=== PATIENT | male | born 1935 | race Caucasian/White ===

== ENCOUNTER 2017-05-09 14:53 | Inpatient (IN) | payer OTHER ==
[~2017-05-09] VITALS: Ht 177.8 cm; Wt 95.3 kg
[2017-05-09 16:30] LABS: EOSINOPHIL (%) 0.3 % (0-5); HEMATOCRIT 28.2 % (38.0-50.0); IMMATURE GRANULOCYTE COUNT 0.4 K/uL; INSTRUMENT ABS NEUTROPHIL CT 6.8 K/uL; LYMPHOCYTE COUNT 0.8 K/uL (1.0-2.8); MCH 31.8 PG (29.0-34.0); MCHC 33.7 G/DL (30.0-36.0); MCV 94.3 FL (86-99); MEAN PLAT.VOLUME 9.3 uM^3 (9.0-12.4); MONOCYTE (%) 8.1 % (3-12); MONOCYTE COUNT 0.7 K/uL (0-0.8); NEUTROPHIL (%) 78.7 % (45-76); NEUTROPHIL COUNT 6.8 K/uL (1.8-6.4); PLATELET COUNT 278 K/uL (156-360); RBC DIS.WIDTH-CV 12.6 % (11.8-14.6); RED BLOOD COUNT 2.99 M/uL (4.00-5.50); WHITE BLOOD COUNT 8.7 K/uL (4.1-10.2)
[2017-05-09 16:37] LABS: INTER. NORMALIZED RATIO 1.1; PROTHROMBIN TIME 12.3 SEC (10.2-12.9)
[2017-05-09 16:38] LABS: CHLORIDE 104 mEq/L (99-109); POTASSIUM 5.1 mEq/L (3.7-5.4); SODIUM 136 mEq/L (136-147)
[2017-05-09 16:40] LABS: GLUCOSE 180 mg/dL (70-99); PTT 31.3 SEC (25-37)
[2017-05-09 16:41] LABS: ANION GAP 8 MEQ/L (2-14)
[2017-05-09 16:44] LABS: GFR ESTIMATE (CALCULATED) 39 mL/min/; UREA NITROGEN (BUN) 31 mg/dL (9-23)
[2017-05-09 16:50] LABS: TROP-I INTERPRETATION NEGATIVE
[2017-05-09] MEDS ORDERED: LOW DOSE ASPIRI81 M1 PO (21:46)
[2017-05-09] MEDS ORDERED: ATORVASTATIN CA40 MG PO (21:47)
[2017-05-09] MEDS ORDERED: LASIX40 MG PO (21:48)
[2017-05-09] MEDS ORDERED: SENNA S TABLET1 EACH PO (21:48)
[2017-05-09] MEDS ORDERED: PULMICORT FLEX90 MCG IH (21:48)
[2017-05-09] MEDS ORDERED: COZAAR100 MG PO (21:49)
[2017-05-09] MEDS ORDERED: APRESOLINE25 MG PO (21:49)
[2017-05-09] MEDS ORDERED: GLUCOPHAGE1000 MG PO (21:50)
[2017-05-09] MEDS ORDERED: NIFEDIPINE ER60 MG PO (21:51)
[2017-05-09] MEDS ORDERED: LOPRESSOR50 MG PO (21:51)
[2017-05-09] MEDS ORDERED: OMEPRAZOLE40 M1 PO (21:51)
[2017-05-09] MEDS ORDERED: FLOMAX0.4 MG PO (21:52)
[2017-05-09] MEDS ORDERED: COUMADIN2.5 MG PO (21:52)
[2017-05-09] MEDS ORDERED: SPIRONOLACTONE25 MG PO (21:52)
[2017-05-09] MEDS ORDERED: ALPRAZOLAM0.25 M2 PO (21:53)
[2017-05-09 23:32] LABS: TROP-I INTERPRETATION NEGATIVE; TROPONIN-I 0.09 ng/mL (0.0-0.30)
[2017-05-10] VITALS (8 sets, daily range): BP systolic 166–198; BP diastolic 73–88
[2017-05-10 06:01] LABS: HEMATOCRIT 27.9 % (38.0-50.0); MCH 32.3 PG (29.0-34.0); MCHC 34.1 G/DL (30.0-36.0); MCV 94.9 FL (86-99); MEAN PLAT.VOLUME 9.9 uM^3 (9.0-12.4); PLATELET COUNT 239 K/uL (156-360); RBC DIS.WIDTH-CV 12.8 % (11.8-14.6); RBC DIS.WIDTH-SD 43.4 % (39-53); RED BLOOD COUNT 2.94 M/uL (4.00-5.50); WHITE BLOOD COUNT 7.9 K/uL (4.1-10.2)
[2017-05-10 06:28] LABS: ANION GAP 11 MEQ/L (2-14); CHLORIDE 101 MEQ/L (99-109); GFR ESTIMATE (CALCULATED) 48 mL/min/; GLUCOSE 238 mg/dL (70-99); POTASSIUM 4.6 MEQ/L (3.7-5.4); SAMPLE HEMOLYSIS CHECK 0; SAMPLE ICTERIC CHECK 0; SAMPLE LIPEMIA CHECK 0; SODIUM 134 MEQ/L (136-147); UREA NITROGEN (BUN) 26 mg/dL (9-23)
[2017-05-10 06:34] LABS: Estimated Average Glucose 131 mg/dL (70-123); HEMOGLOBIN A1c (GLYCOHEMOGLOB) 6.2 % HGB (Below 5.7)
[2017-05-10 06:46] LABS: INTER. NORMALIZED RATIO 1.1; PROTHROMBIN TIME 12.6 SEC (10.2-12.9)
[2017-05-10 17:24] LABS: POINT-OF-CARE METER ID UU14174225
[2017-05-10 21:27] LABS: POINT-OF-CARE METER ID UU14174225
[2017-05-11] VITALS: BP 126/59
[2017-05-11 00:58] LABS: TROP-I INTERPRETATION NEGATIVE; TROPONIN-I 0.06 ng/mL (0.0-0.30)
[2017-05-11 03:29] VITALS: BP 133/60
[2017-05-11 08:29] LABS: INTER. NORMALIZED RATIO 1.1; PROTHROMBIN TIME 11.8 SEC (10.2-12.9)
[2017-05-11 08:30] VITALS: BP 146/90
[2017-05-11 08:46] LABS: ANION GAP 9 MEQ/L (2-14); CHLORIDE 98 MEQ/L (99-109); GFR ESTIMATE (CALCULATED) 36 mL/min/; GLUCOSE 236 mg/dL (70-99); POTASSIUM 4.8 MEQ/L (3.7-5.4); SAMPLE HEMOLYSIS CHECK 0; SAMPLE ICTERIC CHECK 0; SAMPLE LIPEMIA CHECK 0; SODIUM 131 MEQ/L (136-147); UREA NITROGEN (BUN) 40 mg/dL (9-23)
[2017-05-11 12:42] LABS: POINT-OF-CARE METER ID UU13113717
[2017-05-11 13:23] VITALS: BP 152/89
[2017-05-11 17:18] LABS: POINT-OF-CARE METER ID UU14174225
[2017-05-11 19:54] VITALS: BP 166/72
[2017-05-11 21:30] LABS: POINT-OF-CARE METER ID UU14174225
[2017-05-12] VITALS (11 sets, daily range): BP systolic 120–179; BP diastolic 59–86
[2017-05-12 05:33] LABS: HEMATOCRIT 25.6 % (38.0-50.0); MCH 32.8 PG (29.0-34.0); MCHC 34.4 G/DL (30.0-36.0); MCV 95.5 FL (86-99); MEAN PLAT.VOLUME 9.7 uM^3 (9.0-12.4); PLATELET COUNT 249 K/uL (156-360); RBC DIS.WIDTH-SD 43.7 % (39-53); RED BLOOD COUNT 2.68 M/uL (4.00-5.50); WHITE BLOOD COUNT 8.7 K/uL (4.1-10.2)
[2017-05-12 05:58] LABS: ANION GAP 5 MEQ/L (2-14); CHLORIDE 99 MEQ/L (99-109); GFR ESTIMATE (CALCULATED) 34 mL/min/; GLUCOSE 174 mg/dL (70-99); POTASSIUM 5.5 MEQ/L (3.7-5.4); SAMPLE HEMOLYSIS CHECK 0; SAMPLE ICTERIC CHECK 0; SAMPLE LIPEMIA CHECK 0; SODIUM 130 MEQ/L (136-147); UREA NITROGEN (BUN) 51 mg/dL (9-23)
[2017-05-12 08:03] LABS: POINT-OF-CARE METER ID UU13113717
[2017-05-12 11:40] LABS: POINT-OF-CARE METER ID UU14174225
[2017-05-12 14:56] LABS: TROP-I INTERPRETATION NEGATIVE; TROPONIN-I 0.04 ng/mL (0.0-0.30)
[2017-05-12 18:24] LABS: TROP-I INTERPRETATION NEGATIVE; TROPONIN-I 0.03 ng/mL (0.0-0.30)
[2017-05-12 21:29] LABS: POINT-OF-CARE METER ID UU14188625
[2017-05-13 03:35] VITALS: BP 117/56
[2017-05-13 06:40] LABS: ANION GAP 6 MEQ/L (2-14); CHLORIDE 102 MEQ/L (99-109); GFR ESTIMATE (CALCULATED) 34 mL/min/; SAMPLE HEMOLYSIS CHECK 0; SAMPLE ICTERIC CHECK 0; SAMPLE LIPEMIA CHECK 0; SODIUM 132 MEQ/L (136-147); UREA NITROGEN (BUN) 50 mg/dL (9-23)
[2017-05-13 06:42] LABS: GLUCOSE 113 mg/dL (70-99)
[2017-05-13 07:20] VITALS: BP 165/67
[2017-05-13 11:50] VITALS: BP 129/53
[2017-05-13 12:35] LABS: POINT-OF-CARE METER ID UU14174225
[2017-05-13 15:00] VITALS: BP 119/53
[2017-05-13 16:54] LABS: POINT-OF-CARE METER ID UU13113717
[2017-05-13 20:16] VITALS: BP 159/59
[2017-05-13 22:24] LABS: UR CREATININE CONCENTRATION 21.3 MG/DL
[2017-05-13 22:27] LABS: RED BLOOD CELLS RARE /HPF (0-5); WHITE BLOOD CELLS RARE /HPF (0-5)
[2017-05-13 22:28] LABS: BACTERIA RARE /HPF; CASTS NONE SEEN /LPF; CRYSTALS NONE SEEN; EPITHELIAL CELLS RARE /HPF; MUCUS NONE SEEN /LPF
[2017-05-14 00:28] VITALS: BP 141/63
[2017-05-14 04:16] VITALS: BP 166/70
[2017-05-14 08:06] VITALS: BP 168/67
[2017-05-14 08:15] LABS: EOSINOPHIL (%) 0.2 % (0-5); HEMATOCRIT 28.4 % (38.0-50.0); IMMATURE GRANULOCYTE (%) 3.3 % (0.0-0.7); IMMATURE GRANULOCYTE COUNT 0.4 K/uL; INSTRUMENT ABS NEUTROPHIL CT 9.1 K/uL; LYMPHOCYTE COUNT 0.6 K/uL (1.0-2.8); MCHC 33.1 G/DL (30.0-36.0); MCV 96.6 FL (86-99); MEAN PLAT.VOLUME 9.7 uM^3 (9.0-12.4); MONOCYTE (%) 5.8 % (3-12); MONOCYTE COUNT 0.6 K/uL (0-0.8); NEUTROPHIL (%) 84.5 % (45-76); NEUTROPHIL COUNT 9.1 K/uL (1.8-6.4); PLATELET COUNT 277 K/uL (156-360); RBC DIS.WIDTH-CV 13.2 % (11.8-14.6); RBC DIS.WIDTH-SD 45.6 % (39-53); RED BLOOD COUNT 2.94 M/uL (4.00-5.50); WHITE BLOOD COUNT 10.8 K/uL (4.1-10.2)
[2017-05-14 09:05] LABS: ANION GAP 8 MEQ/L (2-14); CHLORIDE 102 MEQ/L (99-109); GFR ESTIMATE (CALCULATED) 39 mL/min/; POTASSIUM 5.1 MEQ/L (3.7-5.4); SAMPLE HEMOLYSIS CHECK 0; SAMPLE ICTERIC CHECK 0; SAMPLE LIPEMIA CHECK 0; SODIUM 133 MEQ/L (136-147); UREA NITROGEN (BUN) 50 mg/dL (9-23)
[2017-05-14 09:08] LABS: GLUCOSE 176 mg/dL (70-99)
[2017-05-14 12:07] VITALS: BP 148/65
[2017-05-14] MEDS ORDERED: CEFTIN500 MG PO (15:45)
[2017-05-14] MEDS ORDERED: APRESOLINE100 MG PO (15:46)
[2017-05-14] MEDS ORDERED: DUONEB 2.5-0.5 M3 ML AEROSOL (15:46)
[2017-05-14] MEDS ORDERED: AZITHROMYCIN500 M1 PO (15:46)
[2017-05-14] MEDS ORDERED: LOPRESSOR25 MG PO (15:46)
[2017-05-14] MEDS ORDERED: TYLENOL REGULA325 MG PO (15:47)
[2017-05-14] MEDS ORDERED: ADVAIR HFA120 INHAL1 IH (15:48)
[2017-05-14] MEDS ORDERED: BRIMONIDINE TAR10 ML BOTH EYES (15:48)
[2017-05-14] MEDS ORDERED: FUROSEMIDE40 MG PO (15:48)
[2017-05-14] MEDS ORDERED: GLIPIZIDE5 MG PO (15:49)
[2017-05-14] MEDS ORDERED: PREDNISONE20 MG PO (15:49)
[2017-05-14] MEDS ORDERED: LATANOPROST2.5 ML BOTH EYES (15:49)
[2017-05-14] MEDS ORDERED: NOVOLOG PE100 UNITS/ SC (15:49)
[2017-05-14] MEDS ORDERED: ALPRAZOLAM0.25 M2 PO (15:53)
[2017-05-14 15:56] VITALS: BP 172/64
[2017-05-14 17:13] LABS: POINT-OF-CARE METER ID UU13113717
== END 2017-05-14 21:16 | DRG 189 ==
LOC: EME 14:53 → EDOF 20:46 → 5SOUTH 20:46 → ENRESERV 20:56 → 5SOUTH 23:20
PROVIDERS: Emergency Medicine; Hospitalist; Internal Medicine; Internal Medicine Nephrology
DX: J96.01 Acute respiratory failure with hypoxia (principal); I13.0 Hypertensive heart and chronic kidney disease with heart failure and stage 1 through stage 4 chronic kidney disease, or unspecified chronic kidney disease; J44.1 Chronic obstructive pulmonary disease with (acute) exacerbation; I25.10 Atherosclerotic heart disease of native coronary artery without angina pectoris; Z95.1 Presence of aortocoronary bypass graft; N18.3 Chronic kidney disease, stage 3 (moderate); E11.22 Type 2 diabetes mellitus with diabetic chronic kidney disease; I44.0 Atrioventricular block, first degree; I50.9 Heart failure, unspecified; Z87.891 Personal history of nicotine dependence; L60.0 Ingrowing nail; D64.9 Anemia, unspecified; Z95.3 Presence of xenogenic heart valve; Z91.19 Patient's noncompliance with other medical treatment and regimen; E87.1 Hypo-osmolality and hyponatremia; N17.9 Acute kidney failure, unspecified; N28.1 Cyst of kidney, acquired
CPT/HCPCS: 71010; 71020; 71250; 76770; 80048; 82570; 82948; 83036; 83735; 83880; 84100; 84156; 84300; 84484; 85025; 85027; 85610; 85730; 93005; 93926; 94640; 94640 76; 94799; 97530 GO; 99202; 99281; 99285; J0360; J0456; J0696; J1644; J1815; J1940; J2270; J2920; J7050

== ENCOUNTER 2017-12-28 13:03 | Inpatient (IN) | payer OTHER ==
[~2017-12-28] VITALS: Ht 177.8 cm; Wt 101.6 kg
[~2017-12-28 13:03] MED LIST: ADVAIR HFA120 INHAL1 IH; ALPRAZOLAM0.25 M2 PO; APRESOLINE100 MG PO; APRESOLINE25 MG PO; ATORVASTATIN CA40 MG PO; AZITHROMYCIN500 M1 PO; BRIMONIDINE TAR10 ML BOTH EYES; CEFTIN500 MG PO; COUMADIN2.5 MG PO; COZAAR100 MG PO; DUONEB 2.5-0.5 M3 ML AEROSOL; FLOMAX0.4 MG PO; FUROSEMIDE40 MG PO; GLIPIZIDE5 MG PO; GLUCOPHAGE1000 MG PO; LASIX40 MG PO; LATANOPROST2.5 ML BOTH EYES; LOPRESSOR25 MG PO; LOPRESSOR50 MG PO; LOW DOSE ASPIRI81 M1 PO; NIFEDIPINE ER60 MG PO; NOVOLOG PE100 UNITS/ SC; OMEPRAZOLE40 M1 PO; PREDNISONE20 MG PO; PULMICORT FLEX90 MCG IH; SENNA S TABLET1 EACH PO; SPIRONOLACTONE25 MG PO; TYLENOL REGULA325 MG PO
[2017-12-28 13:42] LABS: BASOPHIL (%) 0.5 % (0-1); EOSINOPHIL COUNT 0.1 K/uL (0-0.3); HEMATOCRIT 38.8 % (38.0-50.0); HEMOGLOBIN 13.3 G/DL (12.5-16.6); IMMATURE GRANULOCYTE (%) 1.5 % (0.0-0.7); LYMPHOCYTE (%) 17.1 % (15-42); LYMPHOCYTE COUNT 1.1 K/uL (1.0-2.8); MCH 30.4 PG (29.0-34.0); MCHC 34.3 G/DL (30.0-36.0); MCV 88.6 FL (86-99); MONOCYTE (%) 6.7 % (3-12); MONOCYTE COUNT 0.4 K/uL (0-0.8); NEUTROPHIL (%) 73.2 % (45-76); NEUTROPHIL COUNT 4.5 K/uL (1.8-6.4); PLATELET COUNT 153 K/uL (156-360); RBC DIS.WIDTH-CV 13.2 % (11.8-14.6); RED BLOOD COUNT 4.38 M/uL (4.00-5.50); WHITE BLOOD COUNT 6.1 K/uL (4.1-10.2)
[2017-12-28 13:50] LABS: PTT 30.2 SEC (25-37)
[2017-12-28 13:51] LABS: CHLORIDE 105 mEq/L (99-109); MAGNESIUM 2.3 mg/dL (1.3-2.7); POTASSIUM 4.3 mEq/L (3.7-5.4); SODIUM 139 mEq/L (136-147)
[2017-12-28 13:53] LABS: GLUCOSE 165 mg/dL (70-99); TOTAL PROTEIN 6.6 g/dL (6.4-8.3)
[2017-12-28 13:57] LABS: ALKALINE PHOSPHATASE 72 IU/L (3-129); CREATININE 1.4 mg/dL (0.6-1.3); GFR ESTIMATE (CALCULATED) 52 mL/min/ (58.99-99999)
[2017-12-28 13:58] LABS: AST (GOT) 15 IU/L (2-34); UREA NITROGEN (BUN) 32 mg/dL (9-23)
[2017-12-28 14:00] LABS: ALT (GPT) 17 IU/L (3-49); CREATINE KINASE 45 IU/L (1-294); TOTAL CK 45 IU/L (1-294)
[2017-12-28 14:03] LABS: TROP-I INTERPRETATION NEGATIVE; TROPONIN-I 0.05 ng/mL (0.0-0.30)
[2017-12-28 14:06] LABS: CK-MB 2.1 ng/mL (0.0-4.9); CKMB RELATIVE INDEX 4.7 (0.0-3.9)
[2017-12-28] MEDS ORDERED: TYLENOL REGULA325 MG PO (16:27)
[2017-12-28] MEDS ORDERED: LASIX40 MG PO (16:37)
[2017-12-28] MEDS ORDERED: GLIPIZIDE5 MG PO (16:37)
[2017-12-28] MEDS ORDERED: APRESOLINE50 MG PO (16:38)
[2017-12-28] MEDS ORDERED: XALATAN2.5 ML BOTH EYES (16:39)
[2017-12-28] MEDS ORDERED: LOPRESSOR50 MG PO (16:40)
[2017-12-28] MEDS ORDERED: PLAVIX75 MG PO (16:42)
[2017-12-28] MEDS ORDERED: NORVASC5 MG PO (16:44)
[2017-12-28] MEDS ORDERED: PROAIR HFA8.5 GM IH (16:45)
[2017-12-28] MEDS ORDERED: FLONASE ALLERG9.9 ML BOTH NARES (16:45)
[2017-12-28] MEDS ORDERED: SYMBICORT60 INHALAT IH (16:58)
[2017-12-28 17:40] LABS: TROP-I INTERPRETATION NEGATIVE; TROPONIN-I 0.05 ng/mL (0.0-0.30)
[2017-12-28 18:16] VITALS: BP 178/50
[2017-12-28 19:45] VITALS: BP 168/84; BP 178/52
[2017-12-28 20:37] LABS: TROP-I INTERPRETATION NEGATIVE; TROPONIN-I 0.04 ng/mL (0.0-0.30)
[2017-12-28 23:14] VITALS: BP 168/71
[2017-12-29 02:42] LABS: CHLORIDE 106 mEq/L (99-109); POTASSIUM 3.9 mEq/L (3.7-5.4); SODIUM 139 mEq/L (136-147)
[2017-12-29 02:45] LABS: GLUCOSE 111 mg/dL (70-99)
[2017-12-29 02:48] LABS: CREATININE 1.3 mg/dL (0.6-1.3); GFR ESTIMATE (CALCULATED) 56 mL/min/ (58.99-99999)
[2017-12-29 02:49] LABS: UREA NITROGEN (BUN) 28 mg/dL (9-23)
[2017-12-29 02:54] LABS: TROP-I INTERPRETATION NEGATIVE; TROPONIN-I 0.05 ng/mL (0.0-0.30)
[2017-12-29 03:25] VITALS: BP 169/88
[2017-12-29 07:07] VITALS: BP 190/70
[2017-12-29 11:28] VITALS: BP 181/77
[2017-12-29 15:04] VITALS: BP 190/64
[2017-12-29 17:26] VITALS: BP 170/60
[2017-12-29 20:19] VITALS: BP 180/78
[2017-12-30] VITALS (9 sets, daily range): BP systolic 154–201; BP diastolic 67–85
[2017-12-31 02:18] VITALS: BP 175/74
[2017-12-31 06:33] LABS: BASOPHIL (%) 0.5 % (0-1); EOSINOPHIL (%) 0.2 % (0-5); HEMATOCRIT 38.4 % (38.0-50.0); IMMATURE GRANULOCYTE (%) 0.9 % (0.0-0.7); LYMPHOCYTE (%) 12.1 % (15-42); LYMPHOCYTE COUNT 0.7 K/uL (1.0-2.8); MCH 30.2 PG (29.0-34.0); MCHC 33.9 G/DL (30.0-36.0); MCV 89.3 FL (86-99); MONOCYTE (%) 9.3 % (3-12); MONOCYTE COUNT 0.5 K/uL (0-0.8); NEUTROPHIL COUNT 4.5 K/uL (1.8-6.4); PLATELET COUNT 141 K/uL (156-360); RBC DIS.WIDTH-CV 13.4 % (11.8-14.6); RBC DIS.WIDTH-SD 43.8 % (39-53); WHITE BLOOD COUNT 5.8 K/uL (4.1-10.2)
[2017-12-31 06:52] LABS: CHLORIDE 106 MEQ/L (99-109); CREATININE 1.5 MG/DL (0.6-1.3); GFR ESTIMATE (CALCULATED) 48 mL/min/ (58.99-99999); GLUCOSE 124 mg/dL (70-99); POTASSIUM 3.9 MEQ/L (3.7-5.4); SODIUM 140 MEQ/L (136-147); UREA NITROGEN (BUN) 36 mg/dL (9-23)
[2017-12-31 07:13] VITALS: BP 200/83
[2017-12-31 18:01] VITALS: BP 168/72
[2017-12-31 20:53] VITALS: BP 157/68
[2017-12-31 23:26] VITALS: BP 159/72
[2018-01-01 03:47] VITALS: BP 137/63
[2018-01-01 05:35] LABS: BASOPHIL (%) 0.4 % (0-1); EOSINOPHIL (%) 1.9 % (0-5); EOSINOPHIL COUNT 0.1 K/uL (0-0.3); HEMATOCRIT 37.3 % (38.0-50.0); HEMOGLOBIN 12.4 G/DL (12.5-16.6); IMMATURE GRANULOCYTE (%) 0.7 % (0.0-0.7); LYMPHOCYTE (%) 12.1 % (15-42); LYMPHOCYTE COUNT 0.8 K/uL (1.0-2.8); MCH 30.4 PG (29.0-34.0); MCHC 33.2 G/DL (30.0-36.0); MCV 91.4 FL (86-99); MONOCYTE (%) 7.9 % (3-12); MONOCYTE COUNT 0.5 K/uL (0-0.8); NEUTROPHIL COUNT 5.1 K/uL (1.8-6.4); PLATELET COUNT 155 K/uL (156-360); RBC DIS.WIDTH-CV 13.5 % (11.8-14.6); RBC DIS.WIDTH-SD 45.3 % (39-53); RED BLOOD COUNT 4.08 M/uL (4.00-5.50); WHITE BLOOD COUNT 6.7 K/uL (4.1-10.2)
[2018-01-01 05:50] LABS: CHLORIDE 106 MEQ/L (99-109); POTASSIUM 4.3 MEQ/L (3.7-5.4); SODIUM 139 MEQ/L (136-147)
[2018-01-01 05:56] LABS: CREATININE 1.6 MG/DL (0.6-1.3); GFR ESTIMATE (CALCULATED) 44 mL/min/ (58.99-99999); GLUCOSE 183 mg/dL (70-99); UREA NITROGEN (BUN) 36 mg/dL (9-23)
[2018-01-01 07:12] VITALS: BP 168/72
[2018-01-01 12:33] VITALS: BP 160/64
[2018-01-01 16:34] VITALS: BP 128/54
[2018-01-01 19:30] VITALS: BP 187/77
[2018-01-02] VITALS (7 sets, daily range): BP systolic 125–181; BP diastolic 58–81
[2018-01-02 05:54] LABS: BASOPHIL (%) 0.5 % (0-1); EOSINOPHIL (%) 2.4 % (0-5); EOSINOPHIL COUNT 0.2 K/uL (0-0.3); HEMOGLOBIN 12.7 G/DL (12.5-16.6); IMMATURE GRANULOCYTE (%) 1.2 % (0.0-0.7); LYMPHOCYTE (%) 11.3 % (15-42); LYMPHOCYTE COUNT 0.8 K/uL (1.0-2.8); MCH 30.3 PG (29.0-34.0); MCHC 33.4 G/DL (30.0-36.0); MCV 90.7 FL (86-99); MONOCYTE (%) 8.2 % (3-12); MONOCYTE COUNT 0.6 K/uL (0-0.8); NEUTROPHIL (%) 76.4 % (45-76); NEUTROPHIL COUNT 5.7 K/uL (1.8-6.4); PLATELET COUNT 149 K/uL (156-360); RBC DIS.WIDTH-CV 13.2 % (11.8-14.6); RBC DIS.WIDTH-SD 44.1 % (39-53); RED BLOOD COUNT 4.19 M/uL (4.00-5.50); WHITE BLOOD COUNT 7.5 K/uL (4.1-10.2)
[2018-01-02 06:37] LABS: CHLORIDE 103 MEQ/L (99-109); CREATININE 1.6 MG/DL (0.6-1.3); GFR ESTIMATE (CALCULATED) 44 mL/min/ (58.99-99999); GLUCOSE 103 mg/dL (70-99); POTASSIUM 4.2 MEQ/L (3.7-5.4); SODIUM 134 MEQ/L (136-147); UREA NITROGEN (BUN) 35 mg/dL (9-23)
[2018-01-03 05:04] VITALS: BP 122/56
[2018-01-03 06:13] LABS: BASOPHIL (%) 0.6 % (0-1); EOSINOPHIL COUNT 0.2 K/uL (0-0.3); HEMATOCRIT 35.5 % (38.0-50.0); HEMOGLOBIN 11.6 G/DL (12.5-16.6); IMMATURE GRANULOCYTE (%) 1.2 % (0.0-0.7); LYMPHOCYTE (%) 13.3 % (15-42); LYMPHOCYTE COUNT 0.9 K/uL (1.0-2.8); MCH 29.6 PG (29.0-34.0); MCHC 32.7 G/DL (30.0-36.0); MCV 90.6 FL (86-99); MONOCYTE (%) 8.4 % (3-12); MONOCYTE COUNT 0.6 K/uL (0-0.8); NEUTROPHIL (%) 73.5 % (45-76); NEUTROPHIL COUNT 4.8 K/uL (1.8-6.4); PLATELET COUNT 145 K/uL (156-360); RBC DIS.WIDTH-CV 13.2 % (11.8-14.6); RBC DIS.WIDTH-SD 43.7 % (39-53); RED BLOOD COUNT 3.92 M/uL (4.00-5.50); WHITE BLOOD COUNT 6.6 K/uL (4.1-10.2)
[2018-01-03 06:32] LABS: CHLORIDE 105 MEQ/L (99-109); CREATININE 1.9 MG/DL (0.6-1.3); GFR ESTIMATE (CALCULATED) 36 mL/min/ (58.99-99999); GLUCOSE 112 mg/dL (70-99); POTASSIUM 4.6 MEQ/L (3.7-5.4); SODIUM 135 MEQ/L (136-147); UREA NITROGEN (BUN) 42 mg/dL (9-23)
[2018-01-03 08:11] VITALS: BP 160/68
[2018-01-03 10:28] VITALS: BP 107/53
[2018-01-03 11:58] VITALS: BP 122/58
[2018-01-03 17:37] VITALS: BP 147/65
[2018-01-03 20:45] VITALS: BP 162/73
[2018-01-04] VITALS (7 sets, daily range): BP systolic 156–189; BP diastolic 62–82
[2018-01-04 15:27] LABS: CHLORIDE 105 mEq/L (99-109); POTASSIUM 5.2 mEq/L (3.7-5.4); SODIUM 136 mEq/L (136-147)
[2018-01-04 15:29] LABS: GLUCOSE 89 mg/dL (70-99)
[2018-01-04 15:33] LABS: CREATININE 1.6 mg/dL (0.6-1.3); GFR ESTIMATE (CALCULATED) 44 mL/min/ (58.99-99999)
[2018-01-04 15:34] LABS: UREA NITROGEN (BUN) 41 mg/dL (9-23)
[2018-01-05] VITALS (7 sets, daily range): BP systolic 146–198; BP diastolic 58–87
[2018-01-05 06:35] LABS: ALBUMIN 3.2 G/DL (3.2-4.8); CHLORIDE 107 MEQ/L (99-109); CREATININE 1.3 MG/DL (0.6-1.3); GFR ESTIMATE (CALCULATED) 56 mL/min/ (58.99-99999); PHOSPHORUS 3.3 mg/dL (2.5-4.9); POTASSIUM 4.4 MEQ/L (3.7-5.4); SODIUM 135 MEQ/L (136-147); UREA NITROGEN (BUN) 33 mg/dL (9-23)
[2018-01-05 06:47] LABS: GLUCOSE 113 mg/dL (70-99)
[2018-01-06 05:15] VITALS: BP 159/70
[2018-01-06 05:37] LABS: HEMATOCRIT 33.4 % (38.0-50.0); HEMOGLOBIN 11.3 G/DL (12.5-16.6); MCH 30.3 PG (29.0-34.0); MCHC 33.8 G/DL (30.0-36.0); MCV 89.5 FL (86-99); PLATELET COUNT 148 K/uL (156-360); RBC DIS.WIDTH-CV 12.8 % (11.8-14.6); RBC DIS.WIDTH-SD 42.5 % (39-53); RED BLOOD COUNT 3.73 M/uL (4.00-5.50); WHITE BLOOD COUNT 4.9 K/uL (4.1-10.2)
[2018-01-06 06:00] LABS: ALBUMIN 3.2 G/DL (3.2-4.8); CHLORIDE 108 MEQ/L (99-109); CREATININE 1.3 MG/DL (0.6-1.3); GFR ESTIMATE (CALCULATED) 56 mL/min/ (58.99-99999); GLUCOSE 103 mg/dL (70-99); MAGNESIUM 2.2 mg/dl (1.3-2.7); PHOSPHORUS 3.5 mg/dL (2.5-4.9); POTASSIUM 4.4 MEQ/L (3.7-5.4); SODIUM 137 MEQ/L (136-147); UREA NITROGEN (BUN) 37 mg/dL (9-23)
[2018-01-06 09:00] VITALS: BP 165/72
[2018-01-06] MEDS ORDERED: ATORVASTATIN CA40 MG PO (11:32)
[2018-01-06] MEDS ORDERED: CILOSTAZOL50 MG PO (11:32)
[2018-01-06] MEDS ORDERED: CLONIDINE HCL0.1 MG PO (11:32)
[2018-01-06] MEDS ORDERED: APRESOLINE50 MG PO (11:33)
[2018-01-06] MEDS ORDERED: NIFEDIPINE ER60 MG PO (11:33)
[2018-01-06 12:00] VITALS: BP 142/65
== END 2018-01-06 14:50 | DRG 243 ==
LOC: EME 13:03 → EDOF 15:49 → 5WEST 15:49 → ENRESERV 15:59 → 5WEST 18:08 → ENRESERV 12-31 10:02 → 2SOUTH 12-31 11:22 → 5WEST 12-31 11:28 → ENRESERV 12-31 15:24 → 4EAST 12-31 15:53
PROVIDERS: Emergency Medicine; Internal Medicine; Internal Medicine Nephrology
PROC: 0JH606Z Insertion of Pacemaker, Dual Chamber into Chest Subcutaneous Tissue and Fascia, Open Approach (ICD-10-PCS; principal; 2017-12-31)
PROC: 02H73JZ Insertion of Pacemaker Lead into Left Atrium, Percutaneous Approach (ICD-10-PCS; principal; 2017-12-31)
PROC: 02HL3JZ Insertion of Pacemaker Lead into Left Ventricle, Percutaneous Approach (ICD-10-PCS; principal; 2017-12-31)
DX: I44.0 Atrioventricular block, first degree (principal); I95.9 Hypotension, unspecified; N17.9 Acute kidney failure, unspecified; T50.8X5A Adverse effect of diagnostic agents, initial encounter; I12.9 Hypertensive chronic kidney disease with stage 1 through stage 4 chronic kidney disease, or unspecified chronic kidney disease; E11.22 Type 2 diabetes mellitus with diabetic chronic kidney disease; N18.3 Chronic kidney disease, stage 3 (moderate); E11.51 Type 2 diabetes mellitus with diabetic peripheral angiopathy without gangrene; I25.10 Atherosclerotic heart disease of native coronary artery without angina pectoris; I65.23 Occlusion and stenosis of bilateral carotid arteries; I70.1 Atherosclerosis of renal artery; I70.0 Atherosclerosis of aorta; K55.1 Chronic vascular disorders of intestine; I71.4 Abdominal aortic aneurysm, without rupture; J44.9 Chronic obstructive pulmonary disease, unspecified; I45.10 Unspecified right bundle-branch block; F41.9 Anxiety disorder, unspecified; Z87.891 Personal history of nicotine dependence; I25.2 Old myocardial infarction; Z95.1 Presence of aortocoronary bypass graft; Z95.2 Presence of prosthetic heart valve; Z95.820 Peripheral vascular angioplasty status with implants and grafts; Z99.81 Dependence on supplemental oxygen; Z79.82 Long term (current) use of aspirin; Z79.02 Long term (current) use of antithrombotics/antiplatelets; Z86.73 Personal history of transient ischemic attack (TIA), and cerebral infarction without residual deficits
CPT/HCPCS: 70450; 70498; 71045; 71275; 74174; 76770; 80047; 80048; 80053; 80069; 82550; 82550 91; 82553; 82948; 83605; 83735; 83880; 84484; 85025; 85027; 85610; 85730; 93005; 93306; 93880; 93975; 94640; 94640 76; 94760; 94799; 97530 GO; 97530 GP; 99202; 99281; 99285; C1785; C1892; C1894; C1898; G0378; J0360; J0690; J1644; J1815; J2250; J3010; J7030; J7040; S0020